=== PATIENT | female | born 1965 | race Caucasian/White ===

== ENCOUNTER → 2016-10-14 | Outpatient (CLI) | payer BC ==
--- NOTE | ~2016-10-14 | MY11 ---
[facility] A Service of [facility] RADIOLOGY TEXT RESULTS PATIENT: SILVINA HILTON LOCATION: [facility] : 63 UNIT #: [id number] AGE: [address]: Yelitza Sandhu MD SEX: F ORDER DR: [id number] [facility] [address] [place], [place] [address] [id number] O MR#: [id number] Acc #: [id number] NAME: SILVINA HILTON : 1965 SEX: F STUDY DATE/TIME: 10/14/2016 11:04 UNIT: [facility] ROOM: STUDY DESCRIPTION: MY Mammogram Screening Dig [place] Attending Physician: Yelitza Sandhu M.D. Ordering Physician: Yelitza Sandhu M.D. Primary Care Physician: Yelitza Sandhu M.D. MEDICAL IMAGING REPORT This report is preliminary unless electronic signature is present EXAM Digital screening mammogram, 10/14/2016 HISTORY 51-year-old woman status post right breast excisional biopsy followed by lumpectomy and adjuvant radiation therapy age 45. Annual screening. COMPARISON Mammograms date to 11/20/2010 with most recent comparison 10/09/2015. FINDINGS Digital imaging of each breast was completed utilizing screening protocol. An additional true lateral view of the right breast is included. Review includes FDA-approved CAD device. Breast parenchyma is only partially fatty replaced and mildly heterogeneous bilaterally. Size asymmetry is again obvious with the smaller post lumpectomy right breast again noted. Subareolar vascular clips on the right are stable. There is no interval occurring breast mass. I see no suspicious microcalcifications. Prominent left axillary lymph node remains stable. IMPRESSION Benign stable mammogram with stable post lumpectomy findings right breast. Annual screening recommended. Patients over the age of 40 are entered into a reminder system with target due date for the next mammogram. A result letter will also be sent to the patient. BIRADS: 2 Benign Finding Dictated by... Thomas Sanchez M.D. [facility] A Service of [facility] RADIOLOGY TEXT RESULTS PATIENT: SILVINA HILTON LOCATION: [facility] #: [id number] : 63 UNIT #: [id number] AGE: [address]: Yelitza Sandhu MD SEX: F ORDER DR: THIS IS AN ELECTRONICALLY VERIFIED REPORT Thomas Sanchez M.D. at 10/14/2016 1:26 PM Olamide TD: 10/14/2016 13:23 JOB #: [id number] MEDICAL IMAGING REPORT Page 1 of 1 COPY
== END | disposition home or self-care (01) ==
LOC: CWCC 10:37
DX: Z12.31 Encounter for screening mammogram for malignant neoplasm of breast (principal); Z85.3 Personal history of malignant neoplasm of breast; Z98.890 Other specified postprocedural states
CPT/HCPCS: G0202